=== PATIENT | female | born 1995 | race Caucasian/White ===

== ENCOUNTER 2021-02-15 09:50 | Emergency (ER) | payer OTHER ==
[~2021-02-15 09:50] MED LIST: BIRTH CONTROL PO; MACROBID100 MG PO; ZOFRAN4 MG PO; ZOFRAN8 MG PO
[2021-02-15] MEDS ORDERED: NORCO 5-325 TA1 EACH PO (10:22)
[2021-02-15] MEDS ORDERED: SILVADENE20 GM TOP (10:22)
== END 2021-02-15 10:50 | disposition home or self-care (01) ==
LOC: FER 09:50
DX: T25.631A Corrosion of second degree of right toe(s) (nail), initial encounter (principal); T32.0 Corrosions involving less than 10% of body surface; Z88.0 Allergy status to penicillin; Z88.1 Allergy status to other antibiotic agents; Y92.69 Other specified industrial and construction area as the place of occurrence of the external cause; Y99.0 Civilian activity done for income or pay
CPT/HCPCS: 73620

== ENCOUNTER → 2021-04-18 | Day surgery (SDC) | payer OTHER ==
[~2021-04-18] VITALS: Ht 162.6 cm; Wt 88.5 kg
[~2021-04-18] MED LIST changes: +KETOROLAC TROME10 MG PO; +NORCO 5-325 TA1 EACH PO; +SILVADENE20 GM TOP
[2021-04-18 08:43] LABS: HCT 38.9 % (37.0-47.0); HGB 13.2 g/dl (12.5-16.0); MCH 31.7 pg (25.0-31.0); MCHC 33.9 g/dL (32.0-36.0); MCV 93.3 fL (78.0-100.0); MPV 10.3 fL (6.0-9.5); RBC 4.17 M/uL (4.20-5.40); RDW 11.9 % (11.5-14.0); WBC 14.8 K/uL (4.0-10.5)
== END | disposition home or self-care (01) ==
LOC: FAS 07:54
PROVIDERS: Specialist
DX: O02.1 Missed abortion (principal); Z72.89 Other problems related to lifestyle; Z20.822 Contact with and (suspected) exposure to COVID-19
CPT/HCPCS: 36415; 86850; 86900; 86901; J1100; J1580; J1885; J2250; J2405; J2704; J3010; J7120